=== PATIENT | male | born 1970 | race Caucasian/White ===

== ENCOUNTER 2021-09-02 17:37 | Emergency (ER) | payer BC ==
[~2021-09-02 17:37] MED LIST changes: -CYCLOBENZAPRINE10 MG PO; -NAPROSYN500 MG PO
[2021-09-02] MEDS ORDERED: CYCLOBENZAPRINE10 MG PO (19:47)
[2021-09-02] MEDS ORDERED: NAPROSYN500 MG PO (19:47)
== END 2021-09-02 22:45 | disposition home or self-care (01) ==
LOC: ER1 17:37
DX: S39.012A Strain of muscle, fascia and tendon of lower back, initial encounter (principal); I10 Essential (primary) hypertension; E11.9 Type 2 diabetes mellitus without complications; E78.5 Hyperlipidemia, unspecified; X50.0XXA Overexertion from strenuous movement or load, initial encounter
CPT/HCPCS: 72131; 72170; 96372; 99284; J1885

== ENCOUNTER → 2021-09-02 | Outpatient (CLI) | payer BC ==
[~2021-09-02] MED LIST: CYCLOBENZAPRINE10 MG PO; IBUPROFEN600 MG PO; NAPROSYN500 MG PO; PENVEE K 500 M500 MG PO
== END ==
LOC: KOH-I 10:11
DX: M54.42 Lumbago with sciatica, left side (principal); M51.36 Other intervertebral disc degeneration, lumbar region; M48.061 Spinal stenosis, lumbar region without neurogenic claudication; M51.27 Other intervertebral disc displacement, lumbosacral region
CPT/HCPCS: 72148